=== PATIENT | male | born 1960 | race Caucasian/White ===

== ENCOUNTER 2019-07-07 07:45 | Observation (INO) ==
[2019-07-07] MEDS ORDERED: Albuterol 2.5 MG/3 ML NEBULIZER IH ONE (08:00)
[2019-07-07 08:20] LABS: Basophils % 0.2 %; Eosinophils # 0.2 K/mcL (0.0-0.6); Eosinophils % 1.4 %; Hematocrit 42.2 % (37.5-50.1); Hemoglobin 12.2 g/dL (12.9-16.9); Immature Granulocytes % 0.2 % (0-4); Lymphocytes # 1.7 K/mcL (0.6-4.6); Lymphocytes % 16.4 %; Mean Corpuscular HGB Conc 28.9 g/dL (31.6-35.5); Mean Corpuscular Hemoglobin 25.2 pg (28.0-33.3); Mean Platelet Volume 9.1 fL (9.4-12.4); Monocytes # 0.7 K/mcL (0.0-1.3); Monocytes % 6.9 %; Neutrophils # 7.9 K/mcL (1.6-8.9); Platelet Count 223 K/mcL (140-400); Red Blood Count 4.85 M/mcL (4.19-5.50); Segmented Neutrophils % 74.9 %; White Blood Count 10.5 K/mcL (4.3-11.1)
[2019-07-07 08:24] LABS: INR 0.9; Prothrombin Time 10.6 Seconds (9.4-12.1)
[2019-07-07 08:26] LABS: Activated Partial Thrombo Time 32.9 Seconds (26.0-36.0)
[2019-07-07 08:38] LABS: Hypochromasia Present (Not Present); Polychromasia 1+ (Not Present); Stomatocytes 2+ (Not Present)
[2019-07-07 08:42] LABS: Alanine Aminotransferase 11 Units/L (7-52); Albumin 3.5 g/dL (3.5-5.7); Albumin/Globulin Ratio 1.3 (1.1-2.2); Alkaline Phosphatase 75 Units/L (34-104); Aspartate Amino Transferase 9 Units/L (13-39); BUN/Creatinine Ratio 22 (6-26); Bilirubin,Direct 0.1 mg/dL (0.0-0.2); Bilirubin,Indirect 0.1 mg/dL (0.0-1.0); Bilirubin,Total 0.2 mg/dL (0.3-1.0); Blood Urea Nitrogen 13 mg/dL (6-20); Calcium 9.1 mg/dL (8.6-10.3); Carbon Dioxide 36 mEq/L (23-29); Chloride 99 mEq/L (98-107); Globulin 2.6 g/dL (2.4-3.5); Glucose 186 mg/dL (70-105); Osmolality,Calculated 291 (280-300); Potassium 4.6 mEq/L (3.5-5.1); Sodium 138 mEq/L (136-145); Total Protein 6.1 g/dL (6.4-8.9); Troponin I < 0.03 ng/mL (< 0.04); eGFR For African Americans > 60 (> 60); eGFR For Non-African Americans > 60 (> 60)
[2019-07-07 09:40] LABS: VBG HCO3 41 mEq/L (21-27); VBG PCO2 74 mmHg (41-51); VBG PH 7.35 pH Units (7.32-7.42); VBG PO2 81 mmHg (25-50)
[2019-07-07] MEDS ORDERED: Ondansetron 4 MG/2 ML VIAL IVP PRN (12:22)
[2019-07-07] MEDS ORDERED: Naloxone 0.4 MG/ML INJ IVP PRN (12:22)
[2019-07-07] MEDS ORDERED: Ipratropium/Albuterol Neb 3 ML IH PRN (12:24)
[2019-07-07] MEDS ORDERED: Dextrose Gel 15 GM/37.5 ML TUBE PO PRN ×2 (12:25)
[2019-07-07] MEDS ORDERED: D5% in Water 1,000 ML IVC PRN (12:25)
[2019-07-07] MEDS ORDERED: *HR* Dextrose 50 % in Water (Syg) 50 ML SYRINGE IVP PRN (12:25)
[2019-07-07] MEDS: *HR* Heparin 5,000 UNIT/ML VIAL SQ SCH ×2 (14:11→20:57)
[2019-07-07] MEDS: Azithromycin 250 MG TABLET PO SCH (14:11)
[2019-07-07] MEDS: Insulin LISPRO 300 UNITS/3 ML VIAL SQ SCH (18:06)
[2019-07-07] MEDS: Insulin DETEMIR 100 UNIT/ML X5UNITS SQ SCH (20:57)
[2019-07-07] MEDS: Acetaminophen 325 MG TABLET PO PRN (23:12)
[2019-07-08 04:34] LABS: Basophils % 0.3 %; Eosinophils % 1.6 %; Red Cell Distribution Width 14.9 % (11.5-14.5)
[2019-07-08 04:35] LABS: Eosinophils # 0.2 K/mcL (0.0-0.6); Hematocrit 47.7 % (37.5-50.1); Hemoglobin 13.4 g/dL (12.9-16.9); Immature Granulocytes % 0.3 % (0-4); Lymphocytes # 1.8 K/mcL (0.6-4.6); Lymphocytes % 17.9 %; Mean Corpuscular HGB Conc 28.1 g/dL (31.6-35.5); Mean Corpuscular Volume 89.2 fL (83.0-100.0); Mean Platelet Volume 9.3 fL (9.4-12.4); Monocytes # 0.7 K/mcL (0.0-1.3); Monocytes % 7.5 %; Neutrophils # 7.1 K/mcL (1.6-8.9); Platelet Count 224 K/mcL (140-400); Red Blood Count 5.35 M/mcL (4.19-5.50); Segmented Neutrophils % 72.4 %; White Blood Count 9.8 K/mcL (4.3-11.1)
[2019-07-08 05:06] LABS: Hypochromasia Present (Not Present); Platelet Estimate Normal (Normal)
[2019-07-08 05:09] LABS: BUN/Creatinine Ratio 22 (6-26); Blood Urea Nitrogen 12 mg/dL (6-20); Calcium 9.1 mg/dL (8.6-10.3); Carbon Dioxide 38 mEq/L (23-29); Chloride 99 mEq/L (98-107); Glucose 126 mg/dL (70-105); Magnesium 2.2 mg/dL (1.6-2.6); Osmolality,Calculated 291 (280-300); Phosphorous 5.2 mg/dL (2.7-4.5); Potassium 4.6 mEq/L (3.5-5.1); Sodium 140 mEq/L (136-145); eGFR For African Americans > 60 (> 60); eGFR For Non-African Americans > 60 (> 60)
[2019-07-08] MEDS: *HR* Heparin 5,000 UNIT/ML VIAL SQ SCH ×3 (05:13→20:35)
[2019-07-08] MEDS: Azithromycin 250 MG TABLET PO SCH (08:22)
[2019-07-08] MEDS: Acetaminophen 325 MG TABLET PO PRN (08:22)
[2019-07-08] MEDS: Insulin DETEMIR 100 UNIT/ML X5UNITS SQ SCH ×2 (08:23→20:36)
[2019-07-08] MEDS: Insulin LISPRO 300 UNITS/3 ML VIAL SQ SCH ×3 (08:56→17:52)
[2019-07-08] MEDS ORDERED: lisinopriL 20 MG TABLET PO SCH (09:00)
[2019-07-08] MEDS: Tiotropium 18 MCG inhalation IH SCH (11:31)
[2019-07-08] MEDS ORDERED: traZODone 50 MG TABLET PO SCH (21:00)
[2019-07-08] MEDS ORDERED: Famotidine 20 MG TABLET PO SCH (21:00)
[2019-07-09] MEDS: Acetaminophen 325 MG TABLET PO PRN (01:20)
[2019-07-09 04:52] LABS: Basophils % 0.3 %; Hemoglobin 12.3 g/dL (12.9-16.9)
[2019-07-09 04:53] LABS: Eosinophils # 0.1 K/mcL (0.0-0.6); Eosinophils % 1.3 %; Hematocrit 42.4 % (37.5-50.1); Immature Granulocytes % 0.1 % (0-4); Lymphocytes # 1.9 K/mcL (0.6-4.6); Lymphocytes % 21.5 %; Mean Corpuscular Hemoglobin 25.6 pg (28.0-33.3); Mean Corpuscular Volume 88.1 fL (83.0-100.0); Mean Platelet Volume 9.2 fL (9.4-12.4); Monocytes # 0.6 K/mcL (0.0-1.3); Monocytes % 7.2 %; Platelet Count 216 K/mcL (140-400); Red Blood Count 4.81 M/mcL (4.19-5.50); Red Cell Distribution Width 14.8 % (11.5-14.5); Segmented Neutrophils % 69.6 %; White Blood Count 8.6 K/mcL (4.3-11.1)
[2019-07-09 05:08] LABS: BUN/Creatinine Ratio 25 (6-26); Blood Urea Nitrogen 15 mg/dL (6-20); Calcium 9.2 mg/dL (8.6-10.3); Carbon Dioxide 36 mEq/L (23-29); Chloride 98 mEq/L (98-107); Glucose 197 mg/dL (70-105); Osmolality,Calculated 292 (280-300); Potassium 4.3 mEq/L (3.5-5.1); Sodium 138 mEq/L (136-145); eGFR For African Americans > 60 (> 60); eGFR For Non-African Americans > 60 (> 60)
[2019-07-09 05:18] LABS: Hypochromasia Present (Not Present); Platelet Estimate Normal (Normal)
[2019-07-09] MEDS: Tiotropium 18 MCG inhalation IH SCH (05:47)
[2019-07-09] MEDS: *HR* Heparin 5,000 UNIT/ML VIAL SQ SCH (05:47)
[2019-07-09] MEDS: Insulin DETEMIR 100 UNIT/ML X5UNITS SQ SCH (07:34)
[2019-07-09] MEDS: Azithromycin 250 MG TABLET PO SCH (07:34)
[2019-07-09] MEDS: Insulin LISPRO 300 UNITS/3 ML VIAL SQ SCH (08:09)
[2019-07-09 08:18] VITALS: BP 127/63
[2019-07-09] MEDS ORDERED: lisinopriL 20 MG TABLET PO SCH (09:00)
[2019-07-09] MEDS ORDERED: Aspirin Enteric Coated 81 MG Tablet PO SCH (09:00)
[2019-07-09] MEDS ORDERED: Metoprolol XL (24 HR) Succ 25 MG TAB.ER.24H PO SCH (09:00)
[2019-07-09] MEDS ORDERED: Acetaminophen/Aspirin/Caffeine TABLET PO PRN (09:19)
== END 2019-07-09 14:12 | disposition home or self-care (01) ==
LOC: EDBD → EMEROOARM 07:45 → 2NENU 07:45 → MERGE 12:22 → SUATTDRO 12:22 → 2NENU 13:35
PROVIDERS: ADMIT Internal Medicine; ATTEND Internal Medicine

== ENCOUNTER 2020-07-25 16:46 | Observation (INO) ==
[2020-07-25] MEDS ORDERED: Ipratropium/Albuterol Neb 3 ML IH ONE (17:10)
[2020-07-25 17:22] LABS: Basophils % 0.4 %; Eosinophils # 0.2 K/mcL (0.0-0.6); Eosinophils % 3.2 %; Hematocrit 41.4 % (37.5-50.1); Hemoglobin 11.7 g/dL (12.9-16.9); Immature Granulocytes % 0.4 % (0-4); Lymphocytes # 1.4 K/mcL (0.6-4.6); Mean Corpuscular HGB Conc 28.3 g/dL (31.6-35.5); Mean Corpuscular Hemoglobin 25.1 pg (28.0-33.3); Mean Corpuscular Volume 88.8 fL (83.0-100.0); Mean Platelet Volume 8.9 fL (9.4-12.4); Monocytes # 0.6 K/mcL (0.0-1.3); Monocytes % 8.3 %; Neutrophils # 5.3 K/mcL (1.6-8.9); Platelet Count 191 K/mcL (140-400); Red Blood Count 4.66 M/mcL (4.19-5.50); Red Cell Distribution Width 14.7 % (11.5-14.5); Segmented Neutrophils % 69.7 %; White Blood Count 7.6 K/mcL (4.3-11.1)
[2020-07-25 17:36] LABS: Platelet Estimate Normal (Normal)
[2020-07-25 18:14] LABS: BUN/Creatinine Ratio 20 (6-26); Blood Urea Nitrogen 13 mg/dL (8-23); Calcium 9.1 mg/dL (8.6-10.3); Carbon Dioxide 40 mEq/L (23-29); Chloride 93 mEq/L (98-107); Glucose 336 mg/dL (70-105); Osmolality,Calculated 297 (280-300); Potassium 4.6 mEq/L (3.5-5.1); Sodium 137 mEq/L (136-145); Troponin I < 0.03 ng/mL (< 0.04); eGFR For African Americans > 60 (> 60); eGFR For Non-African Americans > 60 (> 60)
[2020-07-25 18:44] LABS: ABG Base Excess 11 mEq/L (-2 to 3); ABG HCO3 39 mEq/L (21-27); ABG Oxygen Saturation 88 % (95-98); ABG PCO2 67 mmHg (35-45); ABG PH 7.37 pH Units (7.32-7.45); ABG PO2 59 mmHg (85-104); ABG TCO2 41 mEq/L (20-26)
[2020-07-25] MEDS ORDERED: Aspirin 325 MG TABLET PO ONE (19:06)
[2020-07-25] MEDS ORDERED: Naloxone 0.4 MG/ML INJ IVP PRN (19:25)
[2020-07-25] MEDS ORDERED: Ondansetron 4 MG/2 ML VIAL IVP PRN (19:25)
[2020-07-25] MEDS ORDERED: Acetaminophen 325 MG TABLET PO PRN (19:25)
[2020-07-25] MEDS ORDERED: *HR* Dextrose 50 % in Water (Vial) 50 ML VIAL IVP PRN (19:30)
[2020-07-25] MEDS ORDERED: Dextrose Gel 15 GM/37.5 ML TUBE PO PRN ×2 (19:30)
[2020-07-25] MEDS ORDERED: D5% in Water 1,000 ML IVC PRN (19:30)
[2020-07-25] MEDS ORDERED: Ipratropium/Albuterol Neb 3 ML IH PRN (20:22)
[2020-07-25] MEDS: Insulin LISPRO 300 UNITS/3 ML VIAL SUBQ SCH ×2 (20:43→21:09)
[2020-07-25] MEDS: Azithromycin 500 MG in 0.9 % Sodium Chloride 250 ML IVPB SCH (21:11)
[2020-07-25] MEDS: methylPREDNISolone 125 MG/2 ML VIAL IVP SCH (23:32)
[2020-07-26 02:08] LABS: Hemoglobin 11.3 g/dL (12.9-16.9); Monocytes % 0.7 %
[2020-07-26 02:09] LABS: Basophils % 0.4 %; Hematocrit 39.6 % (37.5-50.1); Immature Granulocytes % 0.5 % (0-4); Lymphocytes # 0.6 K/mcL (0.6-4.6); Lymphocytes % 7.4 %; Mean Corpuscular HGB Conc 28.5 g/dL (31.6-35.5); Mean Corpuscular Hemoglobin 24.5 pg (28.0-33.3); Mean Corpuscular Volume 85.9 fL (83.0-100.0); Mean Platelet Volume 9.1 fL (9.4-12.4); Monocytes # 0.1 K/mcL (0.0-1.3); Neutrophils # 7.8 K/mcL (1.6-8.9); Platelet Count 207 K/mcL (140-400); Red Blood Count 4.61 M/mcL (4.19-5.50); Red Cell Distribution Width 14.9 % (11.5-14.5); White Blood Count 8.6 K/mcL (4.3-11.1)
[2020-07-26 02:22] LABS: BUN/Creatinine Ratio 22 (6-26); Blood Urea Nitrogen 15 mg/dL (8-23); Carbon Dioxide 37 mEq/L (23-29); Chloride 92 mEq/L (98-107); Glucose 436 mg/dL (70-105); Magnesium 1.9 mg/dL (1.6-2.6); Osmolality,Calculated 298 (280-300); Potassium 4.9 mEq/L (3.5-5.1); Sodium 134 mEq/L (136-145); eGFR For African Americans > 60 (> 60); eGFR For Non-African Americans > 60 (> 60)
[2020-07-26 02:31] LABS: Platelet Estimate Normal (Normal)
[2020-07-26] MEDS: *HR* Enoxaparin 40 MG/0.4 ML SYRINGE SQ SCH (05:28)
[2020-07-26 07:23] LABS: Adenovirus Not Detected (Not Detect); Bordetella Pertussis Not Detected (Not Detect); Chlamydophila pneumoniae Not Detected (Not Detect); Coronavirus 229E Not Detected (Not Detect); Coronavirus HKU1 Not Detected (Not Detect); Coronavirus NL63 Not Detected (Not Detect); Coronavirus OC43 Not Detected (Not Detect); Human Metapneumovirus Not Detected (Not Detect); Human Rhinovirus/Enterovirus Not Detected (Not Detect); Influenza A Subtype 2009 H1 Not Detected (Not Detect); Influenza B Not Detected (Not Detect); Mycoplasma pneumoniae Not Detected (Not Detect); Parainfluenza Virus 1 Not Detected (Not Detect); Parainfluenza Virus 2 Not Detected (Not Detect); Parainfluenza Virus 3 Not Detected (Not Detect); Parainfluenza Virus 4 Not Detected (Not Detect); Respiratory Syncytial Virus Not Detected (Not Detect)
[2020-07-26] MEDS: Azithromycin 500 MG in 0.9 % Sodium Chloride 250 ML IVPB SCH (08:43)
[2020-07-26] MEDS: methylPREDNISolone 125 MG/2 ML VIAL IVP SCH (08:43)
[2020-07-26] MEDS: Insulin LISPRO 300 UNITS/3 ML VIAL SUBQ SCH ×4 (08:44→20:08)
[2020-07-26] MEDS: Aspirin Enteric Coated 81 MG Tablet PO SCH (11:04)
[2020-07-26] MEDS: Insulin DETEMIR 100 UNIT/ML X5UNITS SUBQ SCH ×2 (11:04→20:08)
[2020-07-26] MEDS: Metoprolol XL (24 HR) Succ 25 MG TAB.ER.24H PO SCH (11:04)
[2020-07-26] MEDS: MethylPREDNISolone 40 MG/ML VIAL IVP SCH (17:00)
[2020-07-26] MEDS ORDERED: traZODone 50 MG TABLET PO SCH (21:00)
[2020-07-26] MEDS: Menthol 1 EACH LOZENGE PO PRN (21:03)
[2020-07-27 01:47] LABS: BUN/Creatinine Ratio 28 (6-26); Blood Urea Nitrogen 17 mg/dL (8-23); Calcium 9.2 mg/dL (8.6-10.3); Carbon Dioxide 38 mEq/L (23-29); Chloride 96 mEq/L (98-107); Glucose 333 mg/dL (70-105); Osmolality,Calculated 297 (280-300); Potassium 5.3 mEq/L (3.5-5.1); Sodium 136 mEq/L (136-145); eGFR For African Americans > 60 (> 60); eGFR For Non-African Americans > 60 (> 60)
[2020-07-27] MEDS: *HR* Enoxaparin 40 MG/0.4 ML SYRINGE SQ SCH (05:16)
[2020-07-27] MEDS: MethylPREDNISolone 40 MG/ML VIAL IVP SCH (05:16)
[2020-07-27] MEDS: Menthol 1 EACH LOZENGE PO PRN ×2 (05:29→07:59)
[2020-07-27 07:47] VITALS: BP 156/88
[2020-07-27] MEDS: Metoprolol XL (24 HR) Succ 25 MG TAB.ER.24H PO SCH (07:56)
[2020-07-27] MEDS: Aspirin Enteric Coated 81 MG Tablet PO SCH (07:56)
[2020-07-27] MEDS: Azithromycin 500 MG in 0.9 % Sodium Chloride 250 ML IVPB SCH (07:56)
[2020-07-27] MEDS: Insulin LISPRO 300 UNITS/3 ML VIAL SUBQ SCH ×2 (07:59→12:39)
[2020-07-27] MEDS ORDERED: Cholecalciferol (D-3) 1,000 UNIT (25MCG) TABLET PO SCH (09:00)
[2020-07-27] MEDS: Insulin DETEMIR 100 UNIT/ML X5UNITS SUBQ SCH (09:31)
[2020-07-28] MEDS ORDERED: predniSONE 20 MG TABLET PO SCH (09:00)
== END 2020-07-27 14:06 | disposition home or self-care (01) ==
LOC: EMEROOARM 16:46 → 2ANU 16:46 → SUATTDRO 19:37 → 2ANU 20:23
PROVIDERS: ADMIT Student in an Organized Health Care Education/Training Program; ATTEND General Practice

== ENCOUNTER 2020-11-22 11:27 | Observation (INO) ==
[2020-11-22] MEDS ORDERED: Ipratropium/Albuterol Neb 3 ML IH ONE (11:36)
[2020-11-22 12:13] LABS: Hemoglobin 12.6 g/dL (12.9-16.9); Immature Granulocytes % 0.3 % (0-4); Red Cell Distribution Width 14.9 % (11.5-14.5)
[2020-11-22 12:14] LABS: Basophils % 0.4 %; Eosinophils # 0.2 K/mcL (0.0-0.6); Eosinophils % 2.9 %; Hematocrit 43.5 % (37.5-50.1); Lymphocytes # 1.6 K/mcL (0.6-4.6); Lymphocytes % 20.7 %; Mean Corpuscular Hemoglobin 24.6 pg (28.0-33.3); Mean Platelet Volume 8.5 fL (9.4-12.4); Monocytes # 0.6 K/mcL (0.0-1.3); Neutrophils # 5.2 K/mcL (1.6-8.9); Platelet Count 216 K/mcL (140-400); Red Blood Count 5.12 M/mcL (4.19-5.50); Segmented Neutrophils % 67.7 %; White Blood Count 7.7 K/mcL (4.3-11.1)
[2020-11-22 12:40] LABS: Platelet Estimate Normal (Normal)
[2020-11-22 12:52] LABS: BUN/Creatinine Ratio 17 (6-26); Blood Urea Nitrogen 11 mg/dL (8-23); Calcium 9.3 mg/dL (8.6-10.3); Carbon Dioxide 36 mEq/L (23-29); Chloride 95 mEq/L (98-107); Glucose 257 mg/dL (70-105); Osmolality,Calculated 296 (280-300); Potassium 4.4 mEq/L (3.5-5.1); Sodium 139 mEq/L (136-145); Troponin I < 0.03 ng/mL (< 0.04); eGFR For African Americans > 60 (> 60); eGFR For Non-African Americans > 60 (> 60)
[2020-11-22] MEDS ORDERED: Ipratropium/Albuterol Neb 3 ML ONE (13:04)
[2020-11-22 13:15] LABS: Influenza A PCR Negative (Negative); Influenza B PCR Negative (Negative); Resp. Syncytial Virus PCR Negative (Negative)
[2020-11-22 13:27] LABS: SARS-CoV-2 by PCR (In House) Negative (Negative)
[2020-11-22] MEDS ORDERED: methylPREDNISolone 125 MG/2 ML VIAL IVP ONE (14:48)
[2020-11-22] MEDS ORDERED: Albuterol 2.5 MG/3 ML NEBULIZER IH ONE (14:49)
[2020-11-22] MEDS ORDERED: Naloxone 0.4 MG/ML INJ IVP PRN (15:29)
[2020-11-22] MEDS ORDERED: *HR* OxyCODONE Immed Rel 5 MG TABLET PO PRN (15:29)
[2020-11-22] MEDS ORDERED: Ondansetron 4 MG/2 ML VIAL IVP PRN (15:29)
[2020-11-22] MEDS ORDERED: Acetaminophen 325 MG TABLET PO PRN (15:29)
[2020-11-22] MEDS ORDERED: D5% in Water 1,000 ML IVC PRN (15:32)
[2020-11-22] MEDS ORDERED: Dextrose Gel 15 GM/37.5 ML TUBE PO PRN ×2 (15:32)
[2020-11-22] MEDS ORDERED: *HR* Dextrose 50 % in Water (Vial) 50 ML VIAL IVP PRN (15:32)
[2020-11-22] MEDS: Albuterol 2.5 MG/3 ML NEBULIZER IH SCH ×2 (15:58→19:51)
[2020-11-22 17:02] LABS: VBG HCO3 38 mEq/L (21-27); VBG PCO2 74 mmHg (41-51); VBG PH 7.33 pH Units (7.32-7.42); VBG PO2 40 mmHg (25-50)
[2020-11-22] MEDS: Azithromycin 500 MG in 0.9 % Sodium Chloride 250 ML IVPB SCH (17:05)
[2020-11-22] MEDS: Furosemide 40 MG/4 ML VIAL IVP SCH (17:07)
[2020-11-22] MEDS: Insulin LISPRO 300 UNITS/3 ML VIAL SUBQ SCH ×2 (17:07→20:27)
[2020-11-22] MEDS: Insulin DETEMIR 100 UNIT/ML X5UNITS SUBQ SCH (21:27)
[2020-11-23] MEDS: Albuterol 2.5 MG/3 ML NEBULIZER IH SCH ×6 (00:15→19:41)
[2020-11-23] MEDS: traZODone 50 MG TABLET PO SCH ×2 (01:58→20:11)
[2020-11-23 02:52] LABS: Basophils % 0.2 %; Hematocrit 42.3 % (37.5-50.1); Hemoglobin 12.6 g/dL (12.9-16.9); Immature Granulocytes % 0.4 % (0-4); Lymphocytes # 0.8 K/mcL (0.6-4.6); Lymphocytes % 8.3 %; Mean Corpuscular HGB Conc 29.8 g/dL (31.6-35.5); Mean Corpuscular Hemoglobin 24.7 pg (28.0-33.3); Mean Corpuscular Volume 82.8 fL (83.0-100.0); Mean Platelet Volume 9.1 fL (9.4-12.4); Monocytes # 0.2 K/mcL (0.0-1.3); Monocytes % 1.6 %; Neutrophils # 8.9 K/mcL (1.6-8.9); Platelet Count 247 K/mcL (140-400); Red Blood Count 5.11 M/mcL (4.19-5.50); Red Cell Distribution Width 14.6 % (11.5-14.5); Segmented Neutrophils % 89.5 %; White Blood Count 9.9 K/mcL (4.3-11.1)
[2020-11-23 03:08] LABS: BUN/Creatinine Ratio 21 (6-26); Blood Urea Nitrogen 15 mg/dL (8-23); Calcium 9.2 mg/dL (8.6-10.3); Carbon Dioxide 34 mEq/L (23-29); Chloride 92 mEq/L (98-107); Glucose 344 mg/dL (70-105); Osmolality,Calculated 290 (280-300); Potassium 4.5 mEq/L (3.5-5.1); Sodium 133 mEq/L (136-145); eGFR For African Americans > 60 (> 60); eGFR For Non-African Americans > 60 (> 60)
[2020-11-23] MEDS: Menthol 1 EACH LOZENGE PO PRN ×3 (03:14→20:12)
[2020-11-23] MEDS: Aspirin Enteric Coated 81 MG Tablet PO SCH (08:43)
[2020-11-23] MEDS: Cholecalciferol (D-3) 1,000 UNIT (25MCG) TABLET PO SCH (08:43)
[2020-11-23] MEDS: lisinopriL 20 MG TABLET PO SCH (08:43)
[2020-11-23] MEDS: Metoprolol XL (24 HR) Succ 25 MG TAB.ER.24H PO SCH (08:43)
[2020-11-23] MEDS: predniSONE 20 MG TABLET PO SCH (08:43)
[2020-11-23] MEDS: Furosemide 40 MG/4 ML VIAL IVP SCH (08:44)
[2020-11-23] MEDS: Insulin DETEMIR 100 UNIT/ML X5UNITS SUBQ SCH (08:45)
[2020-11-23] MEDS: Insulin LISPRO 300 UNITS/3 ML VIAL SUBQ SCH ×6 (08:46→17:22)
[2020-11-23] MEDS ORDERED: MethylPREDNISolone 40 MG/ML VIAL IVP SCH (09:00)
[2020-11-23] MEDS: Azithromycin 500 MG in 0.9 % Sodium Chloride 250 ML IVPB SCH (17:22)
[2020-11-24] MEDS: Albuterol 2.5 MG/3 ML NEBULIZER IH SCH ×4 (00:49→11:23)
[2020-11-24 01:38] LABS: Basophils % 0.2 %; Eosinophils # 0.1 K/mcL (0.0-0.6); Eosinophils % 0.5 %; Hematocrit 40.5 % (37.5-50.1); Immature Granulocytes % 0.5 % (0-4); Lymphocytes # 2.2 K/mcL (0.6-4.6); Lymphocytes % 16.8 %; Mean Corpuscular HGB Conc 29.6 g/dL (31.6-35.5); Mean Corpuscular Hemoglobin 24.6 pg (28.0-33.3); Mean Corpuscular Volume 83.2 fL (83.0-100.0); Monocytes % 7.9 %; Neutrophils # 9.7 K/mcL (1.6-8.9); Platelet Count 232 K/mcL (140-400); Red Blood Count 4.87 M/mcL (4.19-5.50); Red Cell Distribution Width 14.8 % (11.5-14.5); Segmented Neutrophils % 74.1 %
[2020-11-24 01:55] LABS: BUN/Creatinine Ratio 27 (6-26); Blood Urea Nitrogen 18 mg/dL (8-23); Carbon Dioxide 35 mEq/L (23-29); Chloride 97 mEq/L (98-107); Glucose 195 mg/dL (70-105); Osmolality,Calculated 291 (280-300); Potassium 4.4 mEq/L (3.5-5.1); Sodium 137 mEq/L (136-145); eGFR For African Americans > 60 (> 60); eGFR For Non-African Americans > 60 (> 60)
[2020-11-24] MEDS: Furosemide 40 MG/4 ML VIAL IVP SCH (08:28)
[2020-11-24] MEDS: Insulin LISPRO 300 UNITS/3 ML VIAL SUBQ SCH ×2 (08:28→08:29)
[2020-11-24] MEDS: Aspirin Enteric Coated 81 MG Tablet PO SCH (08:29)
[2020-11-24] MEDS: Metoprolol XL (24 HR) Succ 25 MG TAB.ER.24H PO SCH (08:29)
[2020-11-24] MEDS: Cholecalciferol (D-3) 1,000 UNIT (25MCG) TABLET PO SCH (08:29)
[2020-11-24] MEDS: predniSONE 20 MG TABLET PO SCH (08:29)
[2020-11-24] MEDS: lisinopriL 20 MG TABLET PO SCH (08:29)
[2020-11-24] MEDS: Insulin DETEMIR 100 UNIT/ML X5UNITS SUBQ SCH (08:31)
[2020-11-24 11:41] VITALS: BP 126/75; PULSE 77; TEMP 97.3; O2SAT 94
== END 2020-11-24 14:32 | disposition home or self-care (01) ==
LOC: EMEROOARM 11:27 → 3BNU 11:27 → SUATTDRO 15:34 → 3BNU 16:16
PROVIDERS: ADMIT Internal Medicine; ATTEND Internal Medicine